=== PATIENT | male | born 1980 | race Caucasian/White ===

== ENCOUNTER 2018-02-03 05:41 | Emergency (ER) | payer OTHER, SELFPAY ==
--- NOTE | 2018-02-03 06:01 | DI.RAD.S_ITS ---
PROCEDURE: XR FOOT RT MIN 3V INDICATIONS: thinks he broke his foot. TECHNIQUE: 3 views of the foot were acquired. COMPARISON: None. FINDINGS: Bones: No fractures or dislocations. No suspicious bony lesions. Soft tissues: No tibiotalar joint effusion. Achilles tendon appears normal. IMPRESSION: No acute radiographic findings. If pain persists, repeat study in 5-7 days is recommended to exclude occult fracture. Dictated by: Pepper Carney M.D. on 02/03/2018 at 8:44 Approved by: Pepper Carney M.D. on 02/03/2018 at 8:45
[2018-02-03 06:19] VITALS: BP 131/85; PULSE 81; RESP 15; TEMP 36.8; O2SAT 97; BMI 25.0
--- NOTE | 2018-02-03 07:04 | ED.LOWEXIN ---
HPI - Extremity Injury (Lower) General Chief Complaint: Extremity Injury, Lower Stated Complaint: thinks rt foot is broken Time Seen by Provider: 02/03/18 07:03 Source: patient Mode of arrival: ambulatory Limitations: no limitations History of Present Illness HPI Narrative: Otherwise healthy 37-year-old male here for evaluation of right foot pain. Patient states that last evening he kicked a table in anger and since then has had pain. States that he has quite a bit of pain on the top and the bottom of his foot especially when standing. No ankle pain. Related Data Allergies Allergy/AdvReac Type Severity Reaction Status Date / Time No Known Drug Allergies Allergy Verified 02/03/18 06:19 Review of Systems Musculoskeletal Comments: Right foot pain Integumentary/Breasts Denies lesions and Denies rash Neurologic Comments: No numbness or tingling right foot Hematologic/Lymphatic Denies easy bruising PFSH Medical History Healthy adult (Acute) Surgical History No pertinent past surgical history (Acute) Social History Smoking Status: Never smoker Exam Initial Vital Signs Initial Vital Signs: Vital Signs Temperature 98.3 F 02/03/18 06:19 Pulse Rate 81 02/03/18 06:19 Respiratory Rate 15 02/03/18 06:19 Blood Pressure 131/85 02/03/18 06:19 Pulse Oximetry 97 02/03/18 06:19 Const General: cooperative, healthy appearing, comfortable, well developed, well groomed and No acute distress Orientation: alert, awake and oriented x3 HENMT Head: normal to inspection and normocephalic Cardio Pulses: dorsalis pedis present on the right Skin Lesions: no lesions Rashes: no rashes Neuro Sensory Exam: no sensory deficits noted Extrem Other: Right proximal fibula unremarkable, right ankle unremarkable from a tenderness to palpation on the dorsum of the right midfoot and also on the plantar aspect of the right midfoot Right toes unremarkable Psych Appearance: grossly normal and well kempt Course Orders Ordered: ED Orders 02/03/18 06:01 XR foot RT min 3V Stat Vital Signs - 8 hr 02/03/18 06:19 Temperature 98.3 F Pulse Rate 81 Respiratory Rate 15 Blood Pressure 131/85 Pulse Oximetry 97 MDM - Extremity Injury (Lower) Imaging Data Right foot x-ray: Attestation: I personally reviewed and interpreted this imaging study as follows: My impression: No fractures, no dislocations MDM Narrative Medical decision making narrative: Patient is neurovascularly intact. No fractures noted on the x-ray. Patient does have quite a bit of pain with standing. He has no tenderness palpation over the space between the 1st and 2nd metatarsal which makes Lisfranc injury less likely. Offer the patient crutches and/or an Igor bandage which he declined. We did discuss elevation and icing. He was given return precautions. He expressed understanding and agreement with plan. Discharge Plan Departure Patient Disposition: Home Clinical Impression: Contusion of foot, right Instructions: DI for Contusion, How To Perform RICE (Rest, Ice, Compress, Elevate) Activity Restrictions/Additional Instructions: Recommend that you keep ice on your foot and keep it elevated. You can walk on your foot as tolerated. Return to the emergency department for any new or worsening symptoms
== END 2018-02-03 07:45 | disposition home or self-care (01) ==
PROVIDERS: Emergency Provider Emergency Medicine
DX: S90.31XA Contusion of right foot, initial encounter (principal); W22.8XXA Striking against or struck by other objects, initial encounter
CPT/HCPCS: 73630; 99283

== ENCOUNTER → 2018-08-28 11:05 | Outpatient (CLI) | payer OTHER, SELFPAY ==
[2018-08-28 11:18] LABS: Add Manual Diff / Slide Review NO; Basophils Absolute Auto 0 /uL (0-100); Basophils Percent Auto 0.4 % (0-2); Eosinophils Absolute Auto 0 /uL (0-450); Eosinophils Percent Auto 1.1 % (2-4); Hematocrit 46.1 % (41-53); Hemoglobin 15.4 g/dL (13.5-17.5); Lymphocytes Absolute Auto 900 /uL (1100-4500); Lymphocytes Percent Auto 25.1 % (25-40); Mean Corpuscular HGB Conc 33.4 % (30-36); Mean Corpuscular Hemoglobin 28.2 PG (26-34); Mean Corpuscular Volume 84.3 fL (80-100); Monocytes Absolute Auto 200 /uL (0-900); Monocytes Percent Auto 6.4 % (3-14); Neutrophils Absolute Auto 2500 /uL (1500-7000); Platelet Count 241 X10^3/uL (150-400); Red Blood Cell Count 5.46 X10^6/uL (4.5-5.9); Red Cell Distribution Width 13.2 % (11.6-14.8); White Blood Cell Count 3.8 X10^3/uL (4.5-11.0)
[2018-08-28 11:37] LABS: Erythrocyte Sedimentation Rate 2 MM/HR (0-15)
[2018-08-28 12:32] LABS: Alanine Aminotransferase 28 IU/L (21-72); Albumin 4.7 g/dL (3.5-5.0); Albumin Globulin Ratio 1.5 (1.0-2.8); Alkaline Phosphatase 63 U/L (38-126); Aspartate Aminotransferase 51 IU/L (17-59); BUN Creatinine Ratio 21.3 (6-22); Bilirubin Total 1.3 mg/dL (0.2-1.3); Blood Urea Nitrogen 17 mg/dL (9-20); Calcium 9.7 mg/dL (8.4-10.2); Carbon Dioxide 30 mmol/L (22-32); Chloride 101 mmol/L (98-107); Cholesterol 194 mg/dL (140-199); Estimated Glomerular Filt Rate > 60.0 mL/min (>60); Globulin 3.2 g/dL (1.7-4.1); Glucose 94 mg/dL (70-100); HDL Cholesterol 35 mg/dL (40-60); HEMOLYSIS 20 (0-50); LDL Cholesterol Calculated 143 mg/dL (<100); Potassium 4.2 mmol/L (3.4-5.1); Sodium 141 mmol/L (137-145); Total Protein 7.9 g/dL (6.3-8.2); Triglycerides 82 mg/dL (35-150)
[2018-08-28 12:41] LABS: Troponin I < 0.012 ng/mL (0.01-0.034)
== END ==
PROVIDERS: Visit Provider Hospitalist
DX: R07.9 Chest pain, unspecified (principal)
CPT/HCPCS: 36415; 80053; 80061; 84484; 85025; 85651

== ENCOUNTER → 2018-10-01 07:41 | Outpatient (CLI) | payer OTHER, SELFPAY ==
--- NOTE | 2018-10-01 08:54 | PM.TREADMILL ---
Cardiac Stress Test Report Referral & Results Date Patient Seen: 10/01/18 Time Patient Seen: 08:30 Requesting provider: Lauren Heard Indication: Angina Rest ECG: NSR Procedure Note: Today following both written and verbal informed consent, the patient was exercised according to a standard Jarad protocol. The patient exercised for a total of 12 minutes 52 seconds achieving a maximum heart rate of 173. Patient's maximum systolic blood pressure was 180. This was an estimated 12.8 MET's. He was asymptomatic during the exercise. Impression: [address] deviation in all leads with exercise. Resolved slowly (3 minutes) with rest. He remained asymptomatic throughout the test. Test is abnormal, but not classically indicative of ischemia. Consider echocardiogram. Shaikh treadmill score of 1 projects a 90% survival over 5 years. Please note: Actual ECG tracings can be found in the PACS system.
== END ==
PROVIDERS: Visit Provider Hospitalist
DX: I20.9 Angina pectoris, unspecified (principal)
CPT/HCPCS: 93016; 93017; 93018

== ENCOUNTER → 2018-10-30 13:47 | Outpatient (CLI) | payer OTHER, SELFPAY ==
--- NOTE | 2018-10-30 14:52 | PM.TREADMILL ---
Cardiac Stress Test Report Referral & Results Date Patient Seen: 10/30/18 Time Patient Seen: 14:30 Requesting provider: Lauren Heard Indication: Chest discomfort Rest ECG: NSR Procedure Note: Today following both written and verbal informed consent the patient was exercised according to a standard Jarad protocol patient went for a total of 7 minutes 14 seconds achieving a maximum heart rate of 169 maximum systolic blood pressure of 174. This is approximately 10 METS. Exercise was terminated at this point because of ST deviations. Patient was also given Cardiolite through a previously started Hep-Lock IV by the licensed nuclear control room operator approximately 1 minute prior to the cessation of exercise. Impression: EKG changes were similar to last time, including ST deviations 2-3 mm in multiple leads in a diffuse pattern. Test was terminated prior to the patient's natural endpoint given the changes and history of having done a regular treadmill recently. Will await perfusion imaging. Please note: Actual ECG tracings can be found in the PACS system.
--- NOTE | 2018-10-31 16:35 | DI.NM.S_ITS ---
DATE OF SERVICE: 10/30/2018 PROCEDURE PERFORMED: Exercise treadmill stress and rest myocardial perfusion imaging study with gating to assess ejection fraction and regional wall motion. ORDERING PROVIDER: Lauren Heard MD INDICATIONS: The patient is a 38-year-old male recently evaluated for chest discomfort with a standard nonnuclear exercise stress test that was apparently abnormal. CARDIAC STRESS: The patient exercised for 7 minutes 14 seconds on a standard Jarad protocol although was prematurely stopped as the patient had reached target heart rate. Thus, exercise capacity cannot be accurately assessed, although on his standard treadmill study of 10/01/2018 apparently was able to exercise for 12 minutes 52 seconds which would suggest an HEMANT of -5%. On today's study, he had a normal heart rate and blood pressure response, achieving a maximum heart rate of 169 bpm (92% of his predicted maximum). His resting ECG is normal with normal sinus rhythm. With stress, there are no significant ST-segment shifts to suggest ischemia. There were no arrhythmias. At 6 minutes of exercise, at heart rate of 160 bpm, 20.8 mCi of technetium-99 Myoview was injected and the patient was imaged 30 minutes later. The patient returned the following day and was reinjected with an additional 25.5 mCi of technetium-99 Myoview and was imaged 30 minutes later, again using a gated SPECT acquisition protocol. FINDINGS: 1. Raw Data: There is fair myocardial tracer uptake. The lung/heart ratio is normal at 0.36 with a normal TID ratio of 0.84. 2. Quantitative Gated SPECT: Post stress ejection fraction is normal at 65% without any focal wall motion abnormality and specifically, the distal inferior wall has normal contractility. The resting ejection fraction is 61%. Left ventricular volumes are at the upper end of normal with a resting end-diastolic volume of 145 mL. 3. Myocardial Perfusion Imaging: Post stress supine images show a fairly normal myocardial perfusion pattern with a mild perfusion defect throughout the entire inferior wall which resolves on prone imaging with the exception of a very subtle residual defect in the distal inferoapex on the prone images. The resting images show a similar perfusion pattern without any clear areas of improvement. IMPRESSION: 1. Probable normal myocardial perfusion study. 2. Mild fixed inferior defect that essentially resolves on the prone images, suggesting diaphragmatic attenuation artifact, although very slight residual defect remains present in the distal inferoapex that is likely artifactual. However, a small nontransmural infarction cannot be entirely excluded but there is no evidence for any myocardial ischemia. 3. Normal left ventricular systolic function with slightly increased left ventricular volumes. 4. Exercise capacity could not be assessed on today's study but previously was felt to be normal. He had no angina or ECG evidence of ischemia.. Jacob KRISHNAMURTHY - Alli/ doc#: [id number]/job#: [id number] dd: 10/31/2018 12:24:00 dt: 10/31/2018 16:20:00 DICTATING MD/COPIES TO: Aldo Oliveira MD; Lauren Heard MD COPIES MNE: CHEYENNE JULIEN
== END ==
PROVIDERS: Visit Provider Hospitalist
DX: R07.89 Other chest pain (principal); R94.39 Abnormal result of other cardiovascular function study; R42 Dizziness and giddiness; R00.0 Tachycardia, unspecified
CPT/HCPCS: 78452; 93016; 93017; 93018; A9502

== ENCOUNTER → 2019-03-20 10:39 | Outpatient (CLI) | payer OTHER, SELFPAY ==
[2019-03-20 12:54] LABS: Thyroid Stimulating Hormone 1.93 uIU/mL (0.47-4.68)
[2019-03-26 18:34] LABS: Metanephrine, Free 27 pg/mL (< OR = 57); Normetanephrine, Free 85 pg/mL (< OR = 148)
== END ==
PROVIDERS: Visit Provider Internal Medicine Cardiovascular Disease
DX: I10 Essential (primary) hypertension (principal)
CPT/HCPCS: 36415; 82088; 83735; 83835; 84443

== ENCOUNTER → 2019-03-27 10:26 | Outpatient (CLI) | payer OTHER, SELFPAY | PROVIDERS: PCP Family Medicine; Visit Provider Family Medicine | DX: R10.13 Epigastric pain (principal) | CPT/HCPCS: 86677 ==

== ENCOUNTER → 2019-04-03 10:14 | Outpatient (CLI) | payer OTHER, SELFPAY ==
--- NOTE | 2019-04-03 10:15 | DI.RAD.S_ITS ---
PROCEDURE: FL UPPER GI W AIR INDICATIONS: Chronic GERD w Dyspepsia COMPARISON: [facility], [facility], ECHOCARDIOGRAM COMPLETE, 03/20/2019, 8:34. FINDINGS: KUB: Preprocedural bottle capper film demonstrates a normal bowel gas pattern. No suspicious abdominal calcifications. Visualized solid organ contours appear normal. Bony structures appear unremarkable. Esophagus: Esophageal mucosa is normal on air-contrast views. On single-contrast views, there is normal esophageal peristalsis. No strictures, extrinsic mass effects, or diverticula. No hiatal hernia or elicited gastroesophageal reflux. There is normal transit of a calibrated barium tablet through the esophagus. Stomach: The stomach is normally distensible, with normal rugal fold thickness. No mucosal masses or ulcers. Pylorus and duodenal bulb appear normal in morphology. Duodenal folds are normal in thickness as well. IMPRESSION: Normal upper GI exam. Dictated by: Ricardo Banks M.D. on 04/03/2019 at 11:01 Approved by: Ricardo Banks M.D. on 04/03/2019 at 11:01
== END ==
PROVIDERS: PCP Family Medicine; Visit Provider Family Medicine
DX: R10.13 Epigastric pain (principal)
CPT/HCPCS: 74247

== ENCOUNTER → 2021-01-06 09:01 | Outpatient (CLI) | payer OTHER, SELFPAY ==
[2021-01-06 09:47] LABS: Add Manual Diff / Slide Review NO; Basophils Absolute Auto 0 /uL (0-100); Basophils Percent Auto 0.5 % (0-2); Eosinophils Absolute Auto 100 /uL (0-450); Eosinophils Percent Auto 1.9 % (2-4); Hematocrit 42.9 % (41-53); Hemoglobin 14.4 g/dL (13.5-17.5); Lymphocytes Absolute Auto 1400 /uL (1100-4500); Lymphocytes Percent Auto 38.6 % (25-40); Mean Corpuscular HGB Conc 33.6 % (30-36); Mean Corpuscular Hemoglobin 28.3 PG (26-34); Mean Corpuscular Volume 84.3 fL (80-100); Monocytes Absolute Auto 300 /uL (0-900); Monocytes Percent Auto 8.5 % (3-14); Neutrophils Absolute Auto 1800 /uL (1500-7000); Neutrophils Percent Auto 50.5 % (50-75); Platelet Count 186 X10^3/uL (150-400); Red Cell Distribution Width 13.1 % (11.6-14.8); White Blood Cell Count 3.6 X10^3/uL (4.5-11.0)
[2021-01-06 10:08] LABS: Alanine Aminotransferase 30 IU/L (<50); Albumin 4.4 g/dL (3.5-5.0); Albumin Globulin Ratio 1.8 (1.0-2.8); Alkaline Phosphatase 53 U/L (38-126); Aspartate Aminotransferase 29 IU/L (17-59); Bilirubin Total 1.1 mg/dL (0.2-1.3); Blood Urea Nitrogen 12 mg/dL (9-20); Calcium 9.7 mg/dL (8.4-10.2); Carbon Dioxide 32 mmol/L (22-32); Chloride 103 mmol/L (98-107); Cholesterol 159 mg/dL (140-199); Estimated Glomerular Filt Rate > 60.0 mL/min (>60); Globulin 2.4 g/dL (1.7-4.1); Glucose 96 mg/dL (70-100); HDL Cholesterol 36 mg/dL (40-60); HEMOLYSIS < 15 (0-50); LDL Cholesterol Calculated 103 mg/dL (<100); Potassium 4.4 mmol/L (3.4-5.1); Sodium 141 mmol/L (137-145); Total Protein 6.8 g/dL (6.3-8.2); Triglycerides 102 mg/dL (35-150)
[2021-01-06 10:38] LABS: Thyroid Stimulating Hormone 2.31 uIU/mL (0.47-4.68)
== END ==
PROVIDERS: PCP Family Medicine; Referring Provider Family Medicine; Visit Provider Family Medicine
DX: I10 Essential (primary) hypertension (principal); I73.00 Raynaud's syndrome without gangrene; M32.9 Systemic lupus erythematosus, unspecified
CPT/HCPCS: 36415; 80053; 80061; 84443; 85025

== ENCOUNTER 2021-07-12 09:28 | Emergency (ER) | payer OTHER, SELFPAY ==
[2021-07-12 09:52] VITALS: BP 170/102; PULSE 100; RESP 20; TEMP 36.5; O2SAT 100; BMI 25.7
[2021-07-12 10:33] LABS: Add Manual Diff / Slide Review NO; Basophils Absolute Auto 0 /uL (0-100); Basophils Percent Auto 0.5 % (0-2); Eosinophils Absolute Auto 100 /uL (0-450); Eosinophils Percent Auto 1.4 % (2-4); Hematocrit 48.2 % (41-53); Hemoglobin 16.3 g/dL (13.5-17.5); Lymphocytes Absolute Auto 1000 /uL (1100-4500); Lymphocytes Percent Auto 27.5 % (25-40); Mean Corpuscular HGB Conc 33.9 % (30-36); Mean Corpuscular Hemoglobin 28.5 PG (26-34); Mean Corpuscular Volume 84.1 fL (80-100); Monocytes Absolute Auto 300 /uL (0-900); Monocytes Percent Auto 6.7 % (3-14); Neutrophils Absolute Auto 2400 /uL (1500-7000); Neutrophils Percent Auto 63.9 % (50-75); Platelet Count 225 X10^3/uL (150-400); Red Blood Cell Count 5.72 X10^6/uL (4.5-5.9); White Blood Cell Count 3.7 X10^3/uL (4.5-11.0)
[2021-07-12 10:42] LABS: Alanine Aminotransferase 44 IU/L (<50); Albumin 5.2 g/dL (3.5-5.0); Albumin Globulin Ratio 1.5 (1.0-2.8); Alkaline Phosphatase 70 U/L (38-126); Aspartate Aminotransferase 32 IU/L (17-59); Bilirubin Total 0.9 mg/dL (0.2-1.3); Blood Urea Nitrogen 9 mg/dL (9-20); Calcium 9.9 mg/dL (8.4-10.2); Carbon Dioxide 30 mmol/L (22-32); Chloride 101 mmol/L (98-107); Estimated Glomerular Filt Rate > 60.0 mL/min (>60); Globulin 3.5 g/dL (1.7-4.1); Glucose 112 mg/dL (70-100); HEMOLYSIS < 15 (0-50); Lipase 90 U/L (23-300); Potassium 4.2 mmol/L (3.4-5.1); Sodium 141 mmol/L (137-145); Total Protein 8.7 g/dL (6.3-8.2)
[2021-07-12 11:05] VITALS: PULSE 79; RESP 10; O2SAT 98
[2021-07-12 11:06] VITALS: BP 143/87; PULSE 78; RESP 10; O2SAT 100
[2021-07-12 11:30] VITALS: BP 144/91; PULSE 75; RESP 19; O2SAT 100
--- NOTE | 2021-07-12 11:43 | DI.US.S_ITS ---
PROCEDURE: US ABDOMEN LIMITED INDICATIONS: RUQ PAIN TECHNIQUE: Real-time focused scanning was performed of the abdomen, with image documentation. COMPARISON: None. FINDINGS: Normal sonographic appearance of the liver, gallbladder, and pancreas. Normal caliber bile ducts. IMPRESSION: No acute finding. Dictated by: Kaveh Bower M.D. on 07/12/2021 at 13:21 Approved by: Kaveh Bower M.D. on 07/12/2021 at 13:22
--- NOTE | 2021-07-12 11:43 | ED_ITS ---
HPI - General Adult General Chief complaint: Abdominal Pain Stated complaint: Left side ABD pain Time Seen by Provider: 07/12/21 11:25 Source: patient Mode of arrival: Family Vehicle History of Present Illness HPI narrative: 41-year-old male here for evaluation of left upper quadrant/upper abdominal discomfort. He has had that symptoms to much of this several times in the past over the past several months/years. Has been evaluated but there has been no definitive diagnosis. No fevers. No nausea vomiting. No diarrhea. Related Data Previous Rx's Medication Instructions Recorded fluoxetine 10 mg capsule 10 mg PO DAILY #30 cap 12/28/20 nifedipine 30 mg tablet,extended 30 mg PO DAILY #30 tab 12/28/20 release sucralfate 1 gram tablet (Carafate) 1 g PO QACHS #90 tab 07/12/21 Allergies Allergy/AdvReac Type Severity Reaction Status Date / Time No Known Drug Allergies Allergy Verified 07/12/21 09:58 Review of Systems Constitutional Constitutional: Denies fever(s) and Denies headache(s) ENT Ears, Nose, Mouth, and Throat: Denies headache(s) Cardiovascular Cardiovascular: Denies chest pain and Denies dyspnea Respiratory Respiratory: Denies dyspnea Gastrointestinal Gastrointestinal: Reports abdominal pain, Denies nausea and Denies vomiting Genitourinary Genitourinary: Denies dysuria Musculoskeletal Musculoskeletal: Denies back pain Integumentary/Breasts Skin/Breast: Reports system reviewed and no additional complaints, except as documented Neurologic Neurologic: Denies headache(s) Hematologic/Lymphatic On Anticoagulants: No Allergic/Immunologic Allergic/Immunologic: Reports system reviewed and no additional complaints, except as documented Patient History Medical History Chicken pox Healthy adult Mixed connective tissue disease (~2009) Raynauds disease Well adult exam Surgical History Anesthesia History of tonsillectomy (~1985) No pertinent past surgical history Family History (Updated 12/22/18 @ 21:42 by Sandrita Ramirez) Father CAD (coronary artery disease) Rheumatoid arthritis Grandmother Lung cancer Grandfather History of heart disease History of heart attack Social History Smoking Status: Former smoker Smoking Status: Former smoker tobacco type: cigarettes alcohol intake frequency: holidays/special occasions only Substance Use Type: does not use Exam Initial Vital Signs Initial Vital Signs: Vital Signs Temperature 97.7 F 07/12/21 09:52 Pulse Rate 100 H 07/12/21 09:52 Respiratory Rate 20 07/12/21 09:52 Blood Pressure 170/102 H 07/12/21 09:52 Pulse Oximetry 100 07/12/21 09:52 HENMT Head: normal to inspection and normocephalic Resp Effort & Inspection: normal respiratory effort Auscultation: clear to auscultation bilaterally Cardio Rate: regular rate Rhythm: regular rhythm GI Palpation: soft, No guarding and tender (Right upper quadrant/epigastric and left upper quadrant) Back/Spine/Pelvis Back: CVA tenderness left Skin General: no rashes or lesions noted Neuro General: patient alert, patient awake, patient oriented x3 and moves all extremities Extrem General: capillary refill normal Psych Appearance: grossly normal and well kempt Course Orders Ordered: ED Orders 07/12/21 10:32 EKG-12 Lead Stat 07/12/21 11:43 US abdomen limited Stat 07/12/21 12:57 CT abdomen pelvis w con Stat Vital Signs Vital signs: Vital Signs - 8 hr 07/12/21 11:30 07/12/21 12:00 07/12/21 14:16 Temperature 98.6 F Pulse Rate 75 71 73 Respiratory Rate 19 17 14 Blood Pressure 144/91 H 143/93 H 131/91 H Pulse Oximetry 100 100 98 Medical Decision Making Lab Data Lab results reviewed: Yes I reviewed the patient's lab results. Result diagrams: 07/12/21 10:18 07/12/21 10:18 Labs: Lab Results 07/12/21 07/12/21 Range/Units 10:18 10:18 WBC 3.7 L (4.5-11.0) X10^3/uL RBC 5.72 (4.5-5.9) X10^6/uL Hgb 16.3 (13.5-17.5) g/dL Hct 48.2 (41-53) % MCV 84.1 (80-100) fL MCH 28.5 (26-34) PG MCHC 33.9 (30-36) % RDW 13.0 (11.6-14.8) % Plt Count 225 (150-400) X10^3/uL Neut % (Auto) 63.9 (50-75) % Lymph % (Auto) 27.5 (25-40) % [place] % (Auto) 6.7 (3-14) % Eos % (Auto) 1.4 L (2-4) % Baso % (Auto) 0.5 (0-2) % Neut # (Auto) 2400 (2288-2507) /uL Lymph # (Auto) 1000 L (5242-2300) /uL [place] # (Auto) 300 (0-900) /uL Eos # (Auto) 100 (0-450) /uL Baso # (Auto) 0 (0-100) /uL Sodium 141 (137-145) mmol/L Potassium 4.2 (3.4-5.1) mmol/L Chloride 101 (98-107) mmol/L Carbon Dioxide 30 (22-32) mmol/L BUN 9 (9-20) mg/dL Creatinine 0.82 (0.66-1.25) mg/dL Estimated GFR > 60.0 (>60) mL/min BUN/Creatinine Ratio 11.0 (6-22) Glucose 112 H (70-100) mg/dL Calcium 9.9 (8.4-10.2) mg/dL Total Bilirubin 0.9 (0.2-1.3) mg/dL AST 32 (17-59) IU/L ALT 44 (<50) IU/L Alkaline Phosphatase 70 (38-126) U/L Total Protein 8.7 H (6.3-8.2) g/dL Albumin 5.2 H (3.5-5.0) g/dL Globulin 3.5 (1.7-4.1) g/dL Albumin/Globulin Ratio 1.5 (1.0-2.8) Lipase 90 (23-300) U/L Urine Dip Bedside Urine Glucose Negative Bedside Urine Bilirubin - Negative Bedside Urine Ketone - Negative Urine Specific [place] 1.020 Bedside Urine Occult Blood - Negative Bedside Urine pH 6.0 Bedside Urine Protein - Negative Bedside Urine Urobilinogen 0.2 Bedside Urine Nitrite - Negative Bedside Urine Leukocytes - Negative Esterase Point of care testing: Urine Dip Bedside Urine Glucose Negative Bedside Urine Bilirubin - Negative Bedside Urine Ketone - Negative Urine Specific [place] 1.020 Bedside Urine Occult Blood - Negative Bedside Urine pH 6.0 Bedside Urine Protein - Negative Bedside Urine Urobilinogen 0.2 Bedside Urine Nitrite - Negative Bedside Urine Leukocytes - Negative Esterase Imaging Data US - abdomen: Radiologist's Impression: [address] [address] Ultrasound Report Signed Patient: Jacob Almanza MR#: [id number] : 1980 Acct:[id number] Age/Sex: 41 / M Date of Service: 07/12/21 Loc: ED Accession Number: [id number] ?? Procedure: US abdomen limited Ordering Provider: Soham Pa D.O. PROCEDURE: US ABDOMEN LIMITED ? INDICATIONS:? RUQ PAIN ? TECHNIQUE:? Real-time focused scanning was performed of the abdomen, with image documentation.? ? COMPARISON:? None. ? FINDINGS:? Normal sonographic appearance of the liver, gallbladder, and pancreas.? Normal caliber bile ducts. ? IMPRESSION:? No acute finding. ? ? Dictated by: Kaveh Bower M.D. on 07/12/2021 at 13:21 ? ? Approved by: Kaveh Bower M.D. on 07/12/2021 at 13:22?? CT scan - abdomen/pelvis: Radiologist's Impression: [address] [address] [address] Scan Report Signed Patient: Jacob Almanza MR#: [id number] : 1980 Acct:[id number] Age/Sex: 41 / M Date of Service: 07/12/21 Loc: ED Accession Number: [id number] ?? Procedure: CT abdomen pelvis w con Ordering Provider: Soham Pa D.O. PROCEDURE:? CT ABDOMEN PELVIS W CON ? INDICATIONS:? Left-sided abdominal pain ? TECHNIQUE:? After the administration of IV contrast, axial sections were acquired from the lung bases to the pubic symphysis.? Coronal and sagittal reformats were performed.? For radiation dose reduction, the following was used:? automated exposure control, adjustment of mA and/or kV according to patient size. ? COMPARISON:? [facility], US ABDOMEN LIMITED, 07/12/2021, 12:12. ? FINDINGS:? Image quality:? Excellent.? ? Lung bases:? Unremarkable.? ? Heart:? No significant findings. ? ? ABDOMEN: Liver:? Unremarkable.? ? Gallbladder:? Unremarkable.? ? Biliary ducts:? Unremarkable.? ? Pancreas:? Unremarkable.? ? Spleen:? Unremarkable.? ? Adrenal Glands:? Unremarkable.? ? Kidneys and Ureters:? Unremarkable.? ? ? Stomach and Bowel:? Stomach, small bowel loops, and colon are unremarkable.? A normal appendix is incidentally noted.? Peritoneum:? No abnormal intraperitoneal fluid.? No free air.? ? Ventral Wall: ? No hernia.? Abdominal Nodes:? No retroperitoneal or mesenteric adenopathy by size criteria.? Vessels:? Aorta and inferior vena cava are normal in size.? ? PELVIS: Pelvic Organs:? Unremarkable.? ? Bladder:? Unremarkable.? ? Pelvic Nodes: No enlarged lymph nodes.? Miscellaneous: No inguinal hernias are seen. ? ? ? Bones:? Unremarkable.? IMPRESSION:? ? A cause of left-sided abdominal not seen. ? ? Dictated by: Saul Lyon M.D. on 07/12/2021 at 12:23 ? ? Approved by: Saul Lyon M.D. on 07/12/2021 at 12:25 ECG Data Attestation: I personally reviewed and interpreted this ECG as follows: Interpretation: Sinus rhythm Ventricular rate is 68 Normal axis Normal QRS Normal QTC No ST T wave changes MDM Narrative Medical decision making narrative: Patient's labs today are unremarkable. He does have a benign exam however he has had symptoms similar to this several times in the past without a definitive diagnosis. Has not any radiologic studies of his symptoms. Is right upper q uadrant ultrasound for right upper quadrant pain shows no signs of gallbladder pathology. His CT scan is unremarkable. Unsure the exact etiology of symptoms but does not appear to be an acute surgical nor infectious issue. We did discuss potentially the cause is from gastric origin to include reflux disease/ulcer. Will send home with a prescription for Carafate and instructions for its use. He was instructed to contact his primary provider for follow-up. Is given return precautions. Expressed understanding and agreement. Discharge Plan Departure Patient Disposition: Home Clinical Impression: Abdominal pain Instructions: DI for Abdominal Pain-Adult Activity Restrictions/Additional Instructions: I do recommend that you contact your primary doctor to discuss follow-up to include potential referral to see Gastroenterology. Return to the emergency department for any new or worsening symptoms. Prescriptions: New sucralfate [Carafate] 1 gram tablet 1 g PO QACHS Qty: 90 0RF No Action fluoxetine 10 mg capsule 10 mg PO DAILY Qty: 30 2RF nifedipine 30 mg tablet extended release 30 mg PO DAILY Qty: 30 2RF Referrals: Carlos Cavanaugh DO [Primary Care Provider] -
[2021-07-12 12:00] VITALS: BP 143/93; PULSE 71; RESP 17; O2SAT 100
--- NOTE | 2021-07-12 12:57 | DI.CT.S_ITS ---
PROCEDURE: CT ABDOMEN PELVIS W CON INDICATIONS: Left-sided abdominal pain TECHNIQUE: After the administration of IV contrast, axial sections were acquired from the lung bases to the pubic symphysis. Coronal and sagittal reformats were performed. For radiation dose reduction, the following was used: automated exposure control, adjustment of mA and/or kV according to patient size. COMPARISON: [facility], , ABDOMEN LIMITED, 07/12/2021, 12:12. FINDINGS: Image quality: Excellent. Lung bases: Unremarkable. Heart: No significant findings. ABDOMEN: Liver: Unremarkable. Gallbladder: Unremarkable. Biliary ducts: Unremarkable. Pancreas: Unremarkable. Spleen: Unremarkable. Adrenal Glands: Unremarkable. Kidneys and Ureters: Unremarkable. Stomach and Bowel: Stomach, small bowel loops, and colon are unremarkable. A normal appendix is incidentally noted. Peritoneum: No abnormal intraperitoneal fluid. No free air. Ventral Wall: No hernia. Abdominal Nodes: No retroperitoneal or mesenteric adenopathy by size criteria. Vessels: Aorta and inferior vena cava are normal in size. PELVIS: Pelvic Organs: Unremarkable. Bladder: Unremarkable. Pelvic Nodes: No enlarged lymph nodes. Miscellaneous: No inguinal hernias are seen. Bones: Unremarkable. IMPRESSION: A cause of left-sided abdominal not seen. Dictated by: Saul Lyon M.D. on 07/12/2021 at 12:23 Approved by: Saul Lyon M.D. on 07/12/2021 at 12:25
[2021-07-12 14:16] VITALS: BP 131/91; PULSE 73; RESP 14; TEMP 37; O2SAT 98
== END 2021-07-12 14:18 | disposition home or self-care (01) ==
PROVIDERS: Emergency Provider Emergency Medicine; PCP Family Medicine
DX: R10.11 Right upper quadrant pain (principal); R10.13 Epigastric pain; R10.12 Left upper quadrant pain; Z87.891 Personal history of nicotine dependence
CPT/HCPCS: 36415; 74177; 76705; 80053; 81003; 83690; 85025; 93005; 99283; 99284; Q9967

== ENCOUNTER → 2021-12-28 12:00 | Outpatient (CLI) | payer OTHER, SELFPAY ==
[2021-12-28 15:13] LABS: Urine N gonorrhoeae NOT DETECTED
[2021-12-28 15:27] LABS: Urine Chlamydia NOT DETECTED
[2021-12-29 08:38] LABS: HBsAg Screen Negative (Negative); Hepatitis A Antibody IgM Negative (Negative); Hepatitis B Core Antibody IgM Negative (Negative); Hepatitis C Antibody <0.1 s/co ratio (0.0-0.9)
[2021-12-29 16:44] LABS: HIV 1 & 2 Ab/Ag 4th Gen Combo NEGATIVE (NEGATIVE)
== END ==
PROVIDERS: PCP Family Medicine; Referring Provider Internal Medicine; Visit Provider Internal Medicine
DX: Z20.9 Contact with and (suspected) exposure to unspecified communicable disease (principal)
CPT/HCPCS: 36415; 80074; 86696; 87389; 87491; 87591

== ENCOUNTER → 2022-12-28 07:35 | Outpatient (CLI) | payer OTHER, SELFPAY ==
--- NOTE | 2022-12-28 07:37 | DI.RAD.S_ITS ---
PROCEDURE: XR RIBS LT MIN 3V W CXR1V INDICATIONS: significant left lower anterior rib pain with cough TECHNIQUE: 2 views of the left ribs were acquired, along with a single view chest. COMPARISON: CT, CT ABDOMEN PELVIS W CON, 07/12/2021, 12:56. FINDINGS: Surgical changes and devices: None. Bones and chest wall: Left lower lobe infiltrate, scars or atelectasis. No fractures or dislocations. No suspicious bony lesions. Overlying soft tissues appear unremarkable. Lungs and pleura: No pleural effusions or pneumothorax. Lungs appear clear. Mediastinum: Mediastinal contours appear normal. Heart size is normal. IMPRESSION: 1. No displaced rib fractures. 2. Left lower lobe infiltrate, scars or atelectasis. Dictated by: Ricardo Banks M.D. on 12/28/2022 at 12:04 Approved by: Ricardo Banks M.D. on 12/28/2022 at 12:07
== END ==
PROVIDERS: PCP Family Medicine; Referring Provider Physician Assistant; Visit Provider Physician Assistant
DX: R07.81 Pleurodynia (principal)
CPT/HCPCS: 71101

== ENCOUNTER → 2023-04-27 16:24 | Outpatient (CLI) | payer OTHER, SELFPAY ==
[2023-04-27 16:57] LABS: Alanine Aminotransferase 24 IU/L (<50); Albumin 4.3 g/dL (3.5-5.0); Albumin Globulin Ratio 1.3 (1.0-2.8); Alkaline Phosphatase 52 U/L (38-126); Aspartate Aminotransferase 26 IU/L (17-59); BUN Creatinine Ratio 16.9 (6-22); Bilirubin Total 0.7 mg/dL (0.2-1.3); Blood Urea Nitrogen 13 mg/dL (9-20); Calcium 9.1 mg/dL (8.4-10.2); Carbon Dioxide 28 mmol/L (22-32); Chloride 102 mmol/L (98-107); Estimated Glomerular Filt Rate > 60 mL/min (>60); Globulin 3.2 g/dL (1.7-4.1); Glucose 99 mg/dL (70-100); HEMOLYSIS < 15 (0-50); Potassium 4.1 mmol/L (3.4-5.1); Sodium 136 mmol/L (137-145); Total Protein 7.5 g/dL (6.3-8.2)
== END ==
PROVIDERS: PCP Family Medicine; Visit Provider Student in an Organized Health Care Education/Training Program
DX: U07.1 COVID-19 (principal)
CPT/HCPCS: 80053

== ENCOUNTER → 2023-06-16 18:43 | Outpatient (CLI) | payer OTHER, SELFPAY ==
--- NOTE | 2023-06-16 18:45 | DI.RAD.S_ITS ---
PROCEDURE: XR CHEST 2V INDICATIONS: Left chest wall pain TECHNIQUE: 2 views of the chest were acquired. COMPARISON: None. FINDINGS: Surgical changes and devices: None. Lungs and pleura: Lungs are clear. No pleural effusions or pneumothorax. Mediastinum: Mediastinal contours are normal. Heart size is normal. Bones and chest wall: No suspicious bony abnormalities. Soft tissues appear unremarkable. IMPRESSION: No acute cardiopulmonary abnormality is seen. Dictated by: Cole Roa M.D. on 06/16/2023 at 19:24 Approved by: Cole Roa M.D. on 06/16/2023 at 19:24
== END ==
LOC: RAD 18:44
PROVIDERS: PCP Family Medicine; Visit Provider Physician Assistant
DX: R07.89 Other chest pain (principal)
CPT/HCPCS: 71046